=== PATIENT | male | born 1985 | race American Indian/Alaskan Native ===

== ENCOUNTER 2017-09-10 19:52 | Emergency (ER) | payer OTHER ==
[2017-09-10 20:05] VITALS: BP 157/86
--- NOTE | 2017-09-10 21:00 | EDM.PDOC ---
ED HPI GENERAL MEDICAL PROBLEM - General Chief Complaint: Respiratory Problem Stated Complaint: [id number] IN SIDE-FEELS LIKE STABBING WHEN COUG Time Seen by Provider: 09/10/17 20:52 Source of Information: Reports: Patient History Limitations: Reports: No Limitations - History of Present Illness INITIAL COMMENTS - FREE TEXT/NARRATIVE: C/O sharp RUQ pain with coughing or sneezing, Pain started yesterday after eating gren[place], slight nausea at times, no vomiting, no fever. Has not tried anything for pain relief. Admits strong acid taste after eating grenadian food last evening. Right Upper Flank Pain Score (Numeric/FACES): 6 - Related Data Allergies Allergy/AdvReac Type Severity Reaction Status Date / Time No Known Allergies Allergy Verified 09/10/17 20:09 Home Meds: Home Meds . [No Known Home Meds] 08/02/15 [History] Past Medical History - Past Health History Medical/Surgical History: Denies Medical/Surgical History - Past Surgical History HEENT Surgical History: Reports: Tonsillectomy Social & Family History - Family History Family Medical History: Noncontributory - Tobacco Use Smoking Status *Q: Unknown Ever Smoked Second Hand Smoke Exposure: No - Caffeine Use Caffeine Use: Reports: Soda - Alcohol Use Days Per Week of Alcohol Use: 2 Number of Drinks Per Day: 8 Total Drinks Per Week: 16 - Recreational Drug Use Recreational Drug Use: No - Living Situation & Occupation Living situation: Reports: with Family Occupation: Employed ED ROS GENERAL - Review of Systems Review Of Systems: ROS reveals no pertinent complaints other than HPI. ED EXAM, GENERAL - Physical Exam Exam: See Below Exam Limited By: No Limitations General Appearance: Alert, No Apparent Distress Eye Exam: Bilateral Eye: EOMI Ears: Normal External Exam Nose: Normal Inspection Throat/Mouth: Normal Oropharynx Head: Atraumatic, Normocephalic Neck: Normal Inspection Respiratory/Chest: No Respiratory Distress, Lungs Clear, Normal Breath Sounds, No Accessory Muscle Use Cardiovascular: Normal Peripheral Pulses, Regular Rate, Rhythm GI/Abdominal: Normal Bowel Sounds, Soft, Tender (mild RUQ tenderness with deep palpation. ) Back Exam: Normal Inspection, Full Range of Motion Extremities: Normal Inspection Neurological: Alert, Oriented, Normal Cognition Psychiatric: Normal Affect Skin Exam: Warm, Dry, Intact, Normal Color Course - Vital Signs Last Recorded V/S: Last Vital Signs Temp 99.2 F 09/10/17 20:03 Pulse 84 09/10/17 20:03 Resp 16 09/10/17 20:03 BP 157/86 H 09/10/17 20:03 Pulse Ox 99 09/10/17 20:03 Departure - Departure Time of Disposition: 20:56 Disposition: Home, Self-Care 01 Condition: Good Clinical Impression: Acid reflux Qualifiers: Esophagitis presence: esophagitis presence not specified Qualified Code(s): K21.9 - Gastro-esophageal reflux disease without esophagitis - Discharge Information Instructions: Gastroesophageal Reflux Disease, Adult, [id number] Forms: ED Department Discharge Additional Instructions: bland diet, no caffeine, no spicy food, no fat omeprazole 20mg daily on empty stomach tylenol for discomfort splint right side with cough or sneeze
== END 2017-09-10 21:02 | disposition home or self-care (01) ==
LOC: DL.ED 19:52
DX: K21.9 Gastro-esophageal reflux disease without esophagitis (principal)
CPT/HCPCS: 99283